=== PATIENT | female | born 1995 | race Caucasian/White ===

== ENCOUNTER → 2019-09-03 | Outpatient (REF) | payer OTHER | LOC: M SFHCLERA 12:30 | PROVIDERS: ATTEND Physician Assistant | DX: J02.9 Acute pharyngitis, unspecified (principal) ==

== ENCOUNTER → 2020-03-27 | Outpatient (CLI) | payer OTHER ==
--- NOTE | 2020-05-23 11:27 | REP ---
INDICATION: FOOT PAIN COMPARISON: None. TECHNIQUE: AP, lateral, bilateral oblique views left foot. FINDINGS: Note: Examination is made available on PACs for interpretation on 05/23/2020. A single oblique view demonstrates a very subtle nondisplaced fracture through the midshaft of the 5th toe proximal phalanx. Correlation with physical examination and history/mechanism of injury recommended. IMPRESSION: Single view demonstrates a very subtle nondisplaced fracture through the mid shaft of the 5th proximal phalanx. <Electronically signed by Usman Padilla > 05/23/20 1127
== END ==
LOC: M LRY 14:35
PROVIDERS: ATTEND Nurse Practitioner Family
DX: S92.515A Nondisplaced fracture of proximal phalanx of left lesser toe(s), initial encounter for closed fracture (principal); X58.XXXA Exposure to other specified factors, initial encounter; Y92.9 Unspecified place or not applicable; Y99.9 Unspecified external cause status